=== PATIENT | female | born 1980 | race African-American/Black ===

== ENCOUNTER 2020-03-22 22:32 | Emergency (ER) | payer SELFPAY ==
--- NOTE | 2020-03-22 22:34 | PHYS DOC ---
Past History Past Medical History: Hypertension, Seizure Smoking: Cigarettes General Adult HPI: HPI: ".. I was sitting on the pot... urinating. is the last thing I remember.... and I guess I had a seizure....I woke up in the bath tub.. I guess .. I must have hit my head on the tub..my forehead is really sore..and this right hip...pelvic area is sore to touch..." " I have not had a seizure for 8 yrs.. I used to have them.. they thought it was due to sleep apnea.. " Patient is a 39` year old female who presents with above hx and complaints of tonic clonic seizure activity for approximately 10 minutes by bystanders. Patient is process of urinating at the time she lost consciousness and apparently fell over and hit her head on the tub . Patient also has a contused area on right hip. Supposedly seizure lasted approximately 10 minutes and was postictal afterwards. Reportedly seizure was tonic-clonic like per bystanders. Patient did not urinate or defecate on herself. Patient did not receive any oral lesions or trauma. Patient does have a contusion on front right side of scalp. There is tenderness in the upper cervical. Patient not been on any seizure meds for the past 8 years. Was not on seizure meds during her previous tonic-clonic seizures when she had seizure-like activity. No history of travel. 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 No history immunosuppression. Is up-to-date with flu vaccination and Pneumovax. Patient has chronic illnesses of hypertension. Normally follows at [facility] in [place] Dr. Shrestha. Review of Systems: Review of Systems: Constitutional: Denies fever or chills Eyes: Denies change in visual acuity HENT: Denies nasal congestion or sore throat Respiratory: Denies cough or shortness of breath Cardiovascular: Denies chest pain or edema GI: Denies abdominal pain, nausea, vomiting, bloody stools or diarrhea : Denies dysuria Musculoskeletal: Denies back pain or joint pain Integument: Denies rash Neurologic: Denies headache, focal weakness or sensory changes . Complains of seizure-like activity Endocrine: Denies polyuria or polydipsia Lymphatic: Denies swollen glands Psychiatric: Denies depression or anxiety Family History: Family History: Noncontributory to presentation Current Medications: Current Meds: See nursing for home meds Allergies: Allergies: Allergic to penicillin which causes a rash Physical Exam: PE: Constitutional: , no acute distress, non-toxic appearance. [] HENT: Normocephalic, contusion right scalp, bilateral external ears normal, oropharynx moist, no oral exudates, nose normal. [] Eyes: PERRLA, EOMI, conjunctiva normal, no discharge. [] Neck: Normal range of motion, upper midline cervical tenderness, supple, no stridor. Palpable thyroid. Cardiovascular:Heart rate regular rhythm, no murmur [] Lungs & Thorax: Bilateral breath sounds equal apex on auscultation [] Abdomen: Bowel sounds normal, soft, no tenderness, no masses, no pulsatile masses. [] Skin: Warm, dry, no erythema, no rash. [] Back: No tenderness, no CVA tenderness. [] Extremities: No tenderness, no cyanosis, no clubbing, ROM intact, no edema. [] Neurologic: Alert and oriented X 3, normal motor function, normal sensory function, no focal deficits noted. DTRs +2 patellar brachial. Chief Design Engineer equal. Ambulatory without problems. No drift. Psychologic: Affect anxious, judgement normal, mood normal. [] EKG: EKG: My interpretation of EKG shows a sinus rhythm at 69 bpm. No findings of acute morphology [] Radiology/Procedures: Radiology/Procedures: [] [address] [place] [id number] IMAGING REPORT Signed PATIENT: MICHELLE NOONAN ACCOUNT: [id number] : 1980 LOCATION: ER AGE: 39 SEX: F EXAM STATUS: PRE ER ORD. PHYSICIAN: GARRET WIGGINS MD REASON: syncope?, Seizure, neck pain, ELY PROCEDURE: CT HEAD AND CERVICAL SPINE WO INDICATION: Reason: syncope?, Seizure, neck pain, ELY / Spl. Instructions: / History: . COMPARISON: None. TECHNIQUE: Axial CT images obtained through the head and cervical spine. One or more of the following individualized dose reduction techniques were utilized for this examination: 1. Automated exposure control; 2. Adjustment of the mA and/or kV according to patient size; 3. Use of iterative reconstruction technique. FINDINGS: Head: No midline shift. Suprasellar cistern is not effaced. No acute intracranial hemorrhage. No hydrocephalus. Cervical spine: Degenerative changes throughout the cervical spine with disc protrusions and osteophyte formation at the vertebral body endplates as well as uncovertebral and facet hypertrophy with multilevel central canal and neural foraminal stenosis. No acute fracture or dislocation. Enlarged heterogenous thyroid. IMPRESSION: * No acute intracranial hemorrhage. * Degenerative changes of the cervical spine with multilevel central canal and neural foraminal stenosis. No acute cervical spine fracture. * Enlarged heterogenous thyroid. Electronically signed by: Nicole Shrestha MD (03/23/2020 12:32 AM) [id number] DICTATED AND SIGNED BY: NICOLE SHRESTHA MD DATE: 03/23/2019 CC: GARRET WIGGINS MD; SHARONDA FERNANDEZ APRN ~MTH0 0 IMAGING REPORT Signed PATIENT: MICHELLE NOONAN ACCOUNT: [id number] : 1980 LOCATION: ER AGE: 39 SEX: F EXAM STATUS: PRE ER ORD. PHYSICIAN: GARRET WIGGINS MD REASON: fall PROCEDURE: HIP RIGHT 1 VIEW WITH PELVIS INDICATION: Reason: fall / Spl. Instructions: / History: COMPARISON: None. IMPRESSION: Pelvis and right hip: 2 views obtained. No acute fracture or dislocation. Electronically signed by: Nicole Shrestha MD (03/23/2020 12:34 AM) [id number] DICTATED AND SIGNED BY: NICOLE SHRESTHA MD DATE: 03/23/2031 CC: GARRET WIGGINS MD; SHARONDA FERNANDEZ APRN ~MTH0 0 Heart Score: HEART Score for Chest Pain: HEART Score for Chest Pain Response (Comments) Value History Slighlty/Non-Suspicious 0 ECG Normal 0 Age < 45 0 Risk Factors No Risk Factors 0 Troponin < Normal Limit 0 Total 0 Risk Factors: Risk Factors: DM, Current or recent (<one month) smoker, HTN, HLP, family history of CAD, obesity. Risk Scores: Score 0 - 3: 2.5% MACE over next 6 weeks - Discharge Home Score 4 - 6: 20.3% MACE over next 6 weeks - Admit for Clinical Observation Score 7 - 10: 72.7% MACE over next 6 weeks - Early Invasive Strategies Course & Med Decision Making: Course & Med Decision Making Pertinent Labs and Imaging studies reviewed. (See chart for details) Suspect patient had a micturition syncope episode. With low CK doubt if prolonged tonic-clonic seizure. There is always a possibility of dysrhythmia. However no findings of dysrhythmias noted during her emergency room stay. Patient to avoid driving until cleared by primary care. Avoid any activity where she may injure herself during a seizure. Patient to follow-up with neurology and/or primary. Return if any concerns. Patient did have a somewhat elevated lymphocyte count and a anemia hemoglobin 11.3 that should be followed up on repeat CBC. Follow-up thyroid levels. Patient encouraged to stop smoking. Patient denies any concerns. Impression: 1 . Seizure-like activity 2. Syncope-suspect micturition syncope 3. Elevated lymphocyte count 49 4. Anemia hemoglobin 11.2 5. Thrombocytosis 429 platelets [] Dragon Disclaimer: Dragon Disclaimer: This electronic medical record was generated, in whole or in part, using a voice recognition dictation system. Departure Departure: Referrals: SHARONDA FERNANDEZ APRN (PCP) Dragon Disclaimer This chart was dictated in whole or in part using Voice Recognition software in a busy, high-work load, and often noisy Emergency Department environment. It may contain unintended and wholly unrecognized errors or omissions. Dragon Disclaimer This chart was dictated in whole or in part using Voice Recognition software in a busy, high-work load, and often noisy Emergency Department environment. It may contain unintended and wholly unrecognized errors or omissions. GARRET WIGGINS MD Mar 22, 2020 22:34
[2020-03-22] MEDS ORDERED: IV RINGERS SOLUTION,LACTATED 1,000 ML IV SCH (22:45)
[2020-03-22 23:18] LABS: BASO # 0.1 x10^3/uL (0.0-0.2); BASO % 1 % (0-3); EOS # 0.2 x10^3/uL (0.0-0.7); EOS % 3 % (0-3); HEMATOCRIT 33.4 % (36.0-47.0); HEMOGLOBIN 11.2 g/dL (12.0-15.5); LYMPH % 49 % (24-48); MEAN CORPUSCULAR HEMOGLOBIN 29 pg (25-35); MEAN CORPUSCULAR HGB CONC 34 g/dL (31-37); MEAN CORPUSCULAR VOLUME 85 fL (79-100); MONO # 0.5 x10^3/uL (0.0-1.1); MONO % 6 % (0-9); NEUT # 3.4 x10^3uL (1.8-7.7); NEUT % 42 % (31-73); PLATELET COUNT 429 x10^3/uL (140-400); RED BLOOD COUNT 3.92 x10^6/uL (3.50-5.40); RED CELL DISTRIBUTION WIDTH 14.4 % (11.5-14.5); WHITE BLOOD COUNT 8.2 x10^3/uL (4.0-11.0)
[2020-03-22 23:35] LABS: ANION GAP 5 (6-14); BLOOD UREA NITROGEN 10 mg/dL (7-20); CALCIUM 9.1 mg/dL (8.5-10.1); CARBON DIOXIDE 30 mmol/L (21-32); CHLORIDE 103 mmol/L (98-107); CREATININE 0.8 mg/dL (0.6-1.0); GLUCOSE 103 mg/dL (70-99); POTASSIUM 4.3 mmol/L (3.5-5.1); SODIUM 138 mmol/L (136-145)
[2020-03-22 23:48] LABS: ALBUMIN 3.6 g/dL (3.4-5.0); ALK PHOS 79 U/L (46-116); ALT (SGPT) 22 U/L (14-59); AST (SGOT) 15 U/L (15-37); LIPASE 70 U/L (73-393); MAGNESIUM 1.9 mg/dL (1.8-2.4); TOTAL BILIRUBIN 0.1 mg/dL (0.2-1.0); TOTAL PROTEIN 7.5 g/dL (6.4-8.2)
[2020-03-22 23:56] LABS: DIRECT BILIRUBIN < 0.1 mg/dL (0.0-0.2)
--- NOTE | 2020-03-23 00:34 | RAD ---
INDICATION: Reason: syncope?, Seizure, neck pain, ELY / Spl. Instructions: / History: . COMPARISON: None. TECHNIQUE: Axial CT images obtained through the head and cervical spine. One or more of the following individualized dose reduction techniques were utilized for this examinat ion: 1. Automated exposure control; 2. Adjustment of the mA and/or kV according to patient size; 3 . Use of iterative reconstruction technique. FINDINGS: Head: No midline shift. Suprasellar cistern is not effaced. No acute intracranial hemorrhage. No hydrocepha jairo. Cervical spine: Degenerative changes throughout the cervical spine with disc protrusions and osteophyte formation at the vertebral body endplates as well as uncovertebral and facet hypertrophy with multilevel central c anal and neural foraminal stenosis. No acute fracture or dislocation. Enlarged heterogenous thyroid. IMPRESSION: * No acute intracranial hemorrhage. * Degenerative changes of the cervical spine with multilevel central canal and neural foraminal sten osis. No acute cervical spine fracture. * Enlarged heterogenous thyroid. Electronically signed by: José Miguel Aquino MD (03/23/2020 12:32 AM) [id number]
--- NOTE | 2020-03-23 00:36 | RAD ---
INDICATION: Reason: fall / Spl. Instructions: / History: COMPARISON: None. IMPRESSION: Pelvis and right hip: 2 views obtained. No acute fracture or dislocation. Electronically signed by: José Miguel Aquino MD (03/23/2020 12:34 AM) [id number]
--- NOTE | 2020-03-23 02:55 | EKG ---
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
== END 2020-03-23 00:54 | disposition home or self-care (01) ==
LOC: ER 22:32
DX: S00.03XA Contusion of scalp, initial encounter (principal); R56.9 Unspecified convulsions; R55 Syncope and collapse; D72.820 Lymphocytosis (symptomatic); D64.9 Anemia, unspecified; D47.3 Essential (hemorrhagic) thrombocythemia; I10 Essential (primary) hypertension; F17.210 Nicotine dependence, cigarettes, uncomplicated; Z88.0 Allergy status to penicillin; W18.2XXA Fall in (into) shower or empty bathtub, initial encounter; Y93.89 Activity, other specified; Y92.89 Other specified places as the place of occurrence of the external cause; Y99.8 Other external cause status
CPT/HCPCS: 36415; 70450; 72125; 73501; 80048; 80076; 82550; 83690; 83735; 83880; 84443; 84484; 84702; 85025; 85379; 85610; 85730; 93005; 96361; 96374; 99285; J2060; J7120

== ENCOUNTER 2021-02-04 03:04 | Emergency (ER) | payer SELFPAY ==
[~2021-02-04] VITALS: Ht 175.3 cm; Wt 81.8 kg
[2021-02-04] MEDS ORDERED: LISI20TA18 PO (03:23)
[2021-02-04] MEDS ORDERED: LISINOPRIL 10 MG TABLET ONE (03:23)
[2021-02-04] MEDS ORDERED: LISINOPRIL 5 MG TABLET. PO ONE (03:30)
--- NOTE | 2021-02-04 03:31 | PHYS DOC ---
Past History Past Medical History: Hypertension, Seizure Smoking: Cigarettes Adult General Chief Complaint Chief Complaint: HYPERTENSION HPI HPI Patient is a 40-year-old female with a past medical history significant for hypertension, on 20 mg of lisinopril daily usually who presents to the emergency department with a chief complaint of hypertension. States she has been out of her lisinopril about a week now and had not been able to make it to her doctor. States she has had a few episodes of lightheadedness but currently denies any headache, change in vision, dizziness or lightheadedness, chest pain, shortness of breath, abdominal pain, nausea, vomiting. Denies any numbness/weakness/tingling. Denies any trouble sitting, standing or walking. Denies any confusion, slurred speech or facial droop. Review of Systems Review of Systems Review of systems otherwise unremarkable except noted in HPI Allergies Allergies Allergies Coded Allergies Type Severity Reaction Last Updated Verified Penicillins Allergy Intermediate 03/22/20 Yes Physical Exam Physical Exam Constitutional: Well developed, well nourished, no acute distress, non-toxic appearance. [] HENT: Normocephalic, atraumatic, bilateral external ears normal, oropharynx moist, no oral exudates, nose normal. [] Eyes: conjunctiva normal, no discharge. [] Neck: Normal range of motion, no tenderness, supple, no stridor. [] Cardiovascular:Heart rate regular rhythm, no murmur [] Lungs & Thorax: Bilateral breath sounds clear to auscultation [] Abdomen: soft, no tenderness, no masses, no pulsatile masses. [] Skin: Warm, dry, no erythema, no rash. [] Extremities: No tenderness, ROM intact, no edema. [] Neurologic: Alert and oriented X 3, normal motor function, normal sensory function, able to sit, stand and walk without issue, cranial nerves intact, no focal deficits noted. [] Psychologic: Affect normal, judgement normal, mood normal. [] EKG EKG [] Radiology/Procedures Radiology/Procedures [] XR CHEST 1V Clinical History: Reason: cardiac w/u / Spl. Instructions: / History: Technique: AP view of the chest was obtained at 02/04/2021 3:07 AM. Comparison: August 17, 2006. Findings: The heart is borderline enlarged. The pulmonary vessels appear normal. The lungs are clear. Impression: Borderline cardiomegaly. Electronically signed by: Terry Torres III, MD (02/04/2021 3:45 AM) [facility] Heart Score C/O Chest Pain: No Risk Factors: Risk Factors: DM, Current or recent (<one month) smoker, HTN, HLP, family history of CAD, obesity. Risk Scores: Risk Factors: DM, Current or recent (<one month) smoker, HTN, HLP, family history of CAD, obesity. Course & Med Decision Making Course & Med Decision Making Patient is a 40-year-old female who presents for medication refill of her hypert ension medicine, hypertension and episodes of lightheadedness Vital signs notable for hypertension. Physical exam noted above. Given patient's home dose of lisinopril. EKG noted and normal. Troponin normal. Chest x-ray not concerning. Laboratory analysis not concerning. Gave week prescription of hypertension medication advised to call primary care physician in the morning and set up a follow-up as soon as possible for reevaluation. Gave return precautions to the ED. Patient grateful, verbalized understanding and agreed with plan of discharge. Dragon Disclaimer Dragon Disclaimer This electronic medical record was generated, in whole or in part, using a voice recognition dictation system. Departure Departure: Impression: Primary Impression: Hypertension Disposition: HOME / SELF CARE / HOMELESS Condition: GOOD Referrals: PCP,CARRIE (PCP) JUANCARLOS MADERA Patient Instructions: Hypertension Additional Instructions: Thank you for coming into the emergency department tonight and allowing us to take care of you. Please read the attached information carefully to go back over some of the things we discussed. It is very important that you follow-up in the morning with your primary care physician to update on ED visit, discuss your hypertension needs and need for medication refills. If you do not have a primary care physician you can call the 1 at the number provided or in the resource packet given to you with local primary care physicians and free clinics. Please come back to the ED with new or concerning symptoms as discussed. Scripts Enalapril Maleate (ENALAPRIL MALEATE) 20 Mg Tablet 1 TAB PO DAILY for HTN for 7 Days, #7 TAB 1 Refill Prov: ALLISON SALGADO MD 02/04/21 ALLISON SALGADO MD Feb 04, 2021 03:31
[2021-02-04] MEDS ORDERED: ENAL20TA10 PO (03:35)
[2021-02-04 03:41] LABS: BASO % 0 % (0-3); EOS # 0.2 x10^3/uL (0.0-0.7); EOS % 3 % (0-3); HEMATOCRIT 36.3 % (36.0-47.0); HEMOGLOBIN 11.6 g/dL (12.0-15.5); LYMPH # 3.4 x10^3/uL (1.0-4.8); LYMPH % 46 % (24-48); MEAN CORPUSCULAR HEMOGLOBIN 28 pg (25-35); MEAN CORPUSCULAR HGB CONC 32 g/dL (31-37); MEAN CORPUSCULAR VOLUME 86 fL (79-100); MONO # 0.3 x10^3/uL (0.0-1.1); MONO % 4 % (0-9); NEUT # 3.4 x10^3uL (1.8-7.7); NEUT % 46 % (31-73); PLATELET COUNT 529 x10^3/uL (140-400); RED BLOOD COUNT 4.23 x10^6/uL (3.50-5.40); RED CELL DISTRIBUTION WIDTH 14.8 % (11.5-14.5); WHITE BLOOD COUNT 7.4 x10^3/uL (4.0-11.0)
--- NOTE | 2021-02-04 03:48 | RAD ---
XR CHEST 1V Clinical History: Reason: cardiac w/u / Spl. Instructions: / History: Technique: AP view of the chest was obtained at 02/04/2021 3:07 AM. Comparison: August 17, 2006. Findings: The heart is borderline enlarged. The pulmonary vessels appear normal. The lungs are clear. Impression: Borderline cardiomegaly. Electronically signed by: Terry Torres III, MD (02/04/2021 3:45 AM) [facility]
[2021-02-04 03:55] LABS: CREATININE 0.7 mg/dL (0.6-1.0); MAGNESIUM 1.8 mg/dL (1.8-2.4)
[2021-02-04 04:25] VITALS: BP 173/90
--- NOTE | 2021-02-04 04:26 | EKG ---
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
== END 2021-02-04 04:26 | disposition home or self-care (01) ==
LOC: ER 03:04
DX: I10 Essential (primary) hypertension (principal); R42 Dizziness and giddiness; F17.210 Nicotine dependence, cigarettes, uncomplicated; Z88.0 Allergy status to penicillin
CPT/HCPCS: 36415; 71045; 80048; 83735; 84484; 85025; 93005; 99285-25